=== PATIENT | female | born 1975 | race Two or more races ===

== ENCOUNTER 2017-05-12 23:26 | Emergency (ER) | payer BC ==
[~2017-05-12] VITALS: Ht 170.2 cm; Wt 75.7 kg
[2017-05-12 23:44] VITALS: BP 139/84
[2017-05-13 03:19] LABS: Urine Bacteria FEW /hpf (None Seen); Urine Blood Negative /uL (Negative); Urine Mucus FEW (None Seen); Urine Specific Gravity 1.026 (1.001-1.035); Urine WBC 2 /hpf (0 - 5)
== END 2017-05-13 04:10 | disposition left against medical advice (07) ==
LOC: ER 23:33
DX: R10.84 Generalized abdominal pain (principal); R11.2 Nausea with vomiting, unspecified; Z53.21 Procedure and treatment not carried out due to patient leaving prior to being seen by health care provider
CPT/HCPCS: 81001